=== PATIENT | female | born 1980 | race African-American/Black ===

== ENCOUNTER 2023-07-03 12:05 | Emergency (ER) | payer OTHER, SELFPAY ==
--- NOTE | ~2023-07-03 | XR_ITS ---
EXAMINATION: XR shoulder RT min 2V INDICATION: Right shoulder pain TECHNIQUE: Four views of the right shoulder are submitted. COMPARISON: None FINDINGS: Normal alignment. No fracture. Glenohumeral and acromioclavicular joint spaces are normal. Soft tissues are unremarkable. IMPRESSION: 1. No acute osseous abnormality. Reviewed, dictated and finalized at location F.
--- NOTE | ~2023-07-03 | CT_ITS ---
EXAMINATION: CT cervical spine wo con DATE: 07/03/2023 14:29 INDICATION: Right-sided neck pain radiating down the right arm TECHNIQUE: Computed tomography (CT) of the cervical spine was performed without intravenous contrast. Automated exposure control and iterative reconstruction technique were employed. The dose-length pro duct was 205.53 mGy-cm. COMPARISON: None FINDINGS: There is reversal of the normal cervical lordosis which could be positional or due to muscle spasm. N o spondylolisthesis or facet subluxation. Vertebral body heights are normal. There is developmental f usion between the C2 and C3 vertebral bodies both anteriorly and posteriorly. Mild disc height loss a t C4-C5 and C6-C7 and moderate disc height loss at C5-C6. Cervical soft tissues are unremarkable. Vis ualized apices of lungs are clear. The following disc levels are specifically discussed: C2-C3: Disc space and facet joints are likely developmentally fused. There is no neural foraminal julieta nosis. There is no central canal stenosis. C3-C4: The disc does not extend beyond the endplate margin. There is mild bilateral uncovertebral gianfranco nt osteoarthritis. There is mild bilateral facet joint osteoarthritis. There is bilateral neural fora felipe stenosis. There is no central canal stenosis. C4-C5: The disc does not extend beyond the endplate margin. There is old right and moderate to severe left uncovertebral joint osteoarthritis. There is no facet joint osteoarthritis. There is mild left and minimal right neural foraminal stenosis. There is mild left central canal stenosis. C5-C6: Mild disc bulge. There is mild left and moderate right uncovertebral joint osteoarthritis. The re is mild bilateral facet joint osteoarthritis. There is mild right neural foraminal stenosis. There is no central canal stenosis. C6-C7: The disc does not extend beyond the endplate margin. There is no uncovertebral joint osteoarth ritis. There is no facet joint osteoarthritis. There is no neural foraminal stenosis. There is no juan tral canal stenosis. C7-T1: The disc does not extend beyond the endplate margin. There is mild left uncovertebral joint os teoarthritis. There is no facet joint osteoarthritis. There is no neural foraminal stenosis. There is no central canal stenosis. IMPRESSION: 1. Mild to moderate cervical spondylosis with likely developmental C2-C3 anterior and posterior spina l fusion. Reviewed, dictated and finalized at location A. IMPRESSION: 1. Mild to moderate cervical spondylosis with likely developmental C2-C3 anteri or and posterior spinal fusion.
--- NOTE | ~2023-07-03 | CT_ITS ---
EXAMINATION: CT thoracic spine wo con DATE: 07/03/2023 14:29 INDICATION: Upper back pain TECHNIQUE: Computed tomography (CT) of the thoracic spine was performed without intravenous contrast. Automated exposure control and iterative reconstruction technique were employed. The dose-length pro duct was 477.49 mGy-cm. COMPARISON: Thoracic spine radiographs dated 06/04/2007 FINDINGS: 12 degrees thoracic levoscoliosis. Sagittal alignment is normal. Chronic appearing T7 compression fra cture with 20% anterior vertebral body height loss. Remaining vertebral body heights are normal. Ther e is multilevel mild disc height loss with mild degenerative endplate changes from T2-T3 through T9-T 10. Moderate facet osteoarthritis on the right bilaterally at T5-T6 and T6-T7 and on the right at T7- T8 and T8-T9 with mild neural foraminal stenosis on the right at T5-T6 and T6-T7. Scattered mild face t osteoarthritis throughout much of the remaining thoracic spine with minimal neural foraminal stenos is at a few additional levels on the left and right. No central canal stenosis. Nonspecific small scl erotic lesion at the T3 vertebral body. Paravertebral soft tissues and visualized portions of the juan gs are clear. IMPRESSION: 1. Chronic mild T7 compression fracture. No acute osseous abnormalities. 2. Mild thoracic levoscoliosis with mild spondylosis. 3. Nonspecific small sclerotic lesion at the T3 vertebral body and statistically most likely to repre sent a bone island. If there is history of prior malignancy would consider bone scan for further eval uation. Reviewed, dictated and finalized at location A. IMPRESSION: 1. Chronic mild T7 compression fracture. No acute osseous abnormalities. 2. Mild thoracic levoscoliosis with mild spondylosis. 3. Nonspecific small sclerotic lesion at the T3 vertebral body and statisticall y most likely to represent a bone island. If there is history of prior malignan cy would consider bone scan for further evaluation.
[2023-07-03 12:06] VITALS: BP 135/82; PULSE 80; RESP 18; TEMP 36.2; O2SAT 100
--- NOTE | 2023-07-03 13:28 | ED.GENADULT ---
HPI - General Adult General Chief complaint: Unspecified <ESTHER Hearn Last Filed: 07/03/23 13:38> Stated complaint: R shoulder/back pain <ESTHER Hearn Last Filed: 07/03/23 13:38> Time Seen by Provider: 07/03/23 13:28 <ESTHER Hearn Last Filed: 07/03/23 13:38> Focused HPI: Patient is a 43 y/o female who presents to the ED with c/o R sided shoulder/upper back pain. Patient reports the pain has been ongoing for over a month. She denies any injury. She was seen at [facility] 1 month ago for similar sx's, told she had degenerative disc disease on imaging, felt better with supportive therapy. States pain has been worsening again over last 10 days. Has been taking naproxen and konstantin back and body w/o improvement. Pain is constant with intermittent sharp shooting pains. Pain radiates across her chest, down her R arm to her elbow, right neck down into upper to mid back. Denies numbness/tingling, SOB, N/V. GENERAL: Well-appearing, well-nourished, and in no acute distress. HEAD: Normocephalic, atraumatic. CHEST: Clear to auscultation. ?No respiratory distress. HEART: Regular rate and rhythm.? NEURO: ?Alert and oriented x3. No focal deficits. Equal community placement worker strength bilaterally MSK: Significant tenderness with any light palpation throughout R anterior chest wall, R clavicular region, R shoulder joint anteriorly, and throughout R sided thoracic and cervical paraspinal musculature. No palpable spinal bony deformities. PSYCH: Anxious, tearful Patient screened in triage and initial orders placed.? ?Additional care and disposition to be based upon?diagnostic testing and treatment. <ESTHER Hearn Last Filed: 07/03/23 13:38> Source: patient <ESTHER Hearn Last Filed: 07/03/23 13:38> Mode of arrival: ambulatory <ESTHER Hearn Last Filed: 07/03/23 13:38> Limitations: no limitations <Thelma Junior PA-C - Last Filed: 07/03/23 13:38> History of Present Illness HPI narrative: 43-year-old female presenting with right-sided chest pain. States that this has been going on for the last month or so. She was seen at [facility] and prescribed naproxen and Flexeril which has been helping on a temporary basis. She is unsure about exacerbating or alleviating factors. States that she is under a tremendous amount of stress and she is a single mother. Denies any infectious symptoms. Denies leg swelling, shortness of breath, numbness or weakness. Denies any recent traumas. <Grace Drew MD - Last Filed: 07/10/23 10:32> Related Data Allergies/adverse reactions: Allergies Allergy/AdvReac Type Severity Reaction Status Date / Time No Known Allergies Allergy Unverified 03/22/18 09:21 <Thelma Junior PA-C - Last Filed: 07/03/23 13:38> Review of Systems Review of Systems: All systems reviewed & are unremarkable except as noted in HPI and below <Grace Drew MD - Last Filed: 07/10/23 10:32> [facility] Family History Family History: Family History Sibling Hypertension Patient's brother is in good health Mother Family history of malignant neoplasm of breast in first degree relative Family history of heart disease in male family member before age 55 <Thelma Junior PA-C - Last Filed: 07/03/23 13:38> Social History Social History: Social History Smoking status: Never smoker Alcohol intake: never <Thelma Junior PA-C - Last Filed: 07/03/23 13:38> Exam Narrative: GENERAL: Tearful, anxious, very pleasant and cooperative HEAD: Normocephalic, atraumatic. EYES: PERRLA and EOMI. ENT: grossly unremarkable NECK: Supple. no midline tenderness CHEST: Clear to auscultation. No respiratory distress. +tender over upper right chest wall HEART: Regular rate and rh
--- NOTE | 2023-07-03 13:34 | ECG_ITS ---
Measurements Intervals [place] Rate: 87 P: 79 AL: 132 QRS: 50 QRSD: 78 T: 52 QT: 372 QTc: 450 Interpretive Statements SINUS RHYTHM LEFT ATRIAL ENLARGEMENT BASELINE ARTIFACT- I, III, AVR, AVL, AVF, V1-V3 BORDERLINE ECG NO PREVIOUS ECG AVAILABLE FOR COMPARISON Electronically Signed On 07-03-2023 13:51:18 CDT by Jorge Lopez D.O.
[2023-07-03] MEDS: methylPREDNISolone SOD SUCC 125 MG VIAL IM (13:59)
[2023-07-03] MEDS: ACETAMINOPHEN 500 MG TABLET 1000 MG PO (14:00)
[2023-07-03 15:15] VITALS: BP 121/83; PULSE 68; RESP 18; O2SAT 100
== END 2023-07-03 17:58 | disposition home or self-care (01) ==
PROVIDERS: Emergency Provider Emergency Medicine; PCP Family Medicine
DX: R07.89 Other chest pain (principal); F41.9 Anxiety disorder, unspecified; M47.812 Spondylosis without myelopathy or radiculopathy, cervical region; M48.54XA Collapsed vertebra, not elsewhere classified, thoracic region, initial encounter for fracture; M89.9 Disorder of bone, unspecified; R94.31 Abnormal electrocardiogram [ECG] [EKG]
CPT/HCPCS: 72125; 72128; 73030; 81025; 93005; 96372; 99284; A9270; J2930

== ENCOUNTER 2025-01-21 20:08 | Emergency (ER) | payer OTHER, SELFPAY ==
--- NOTE | ~2025-01-21 | XR_ITS ---
Examination: XR chest 2V Clinical History: cough Comparison: None Technique: PA and Lateral Findings: Cardiomediastinal silhouette normal size and configuration. Lungs clear. No acute bony abnormality. IMPRESSION: 1. No acute cardiopulmonary findings. Reviewed, dictated and finalized at location R.
[2025-01-21 20:11] VITALS: BP 111/76; PULSE 84; RESP 16; TEMP 36.4; O2SAT 100
[2025-01-21 20:20] VITALS: O2SAT 100
--- NOTE | 2025-01-21 20:39 | ED.URI ---
HPI - URI/Sore Throat General Chief Complaint: Upper Respiratory Infection Stated Complaint: COUGH Time Seen by Provider: 01/21/25 20:24 Source: patient Mode of arrival: ambulatory Limitations: no limitations History of Present Illness HPI Narrative: Patient is a 44-year-old female presents to the emergency department complaining of nose bleeds, as a congestion, cough, difficulty sleeping. Patient notes that she took NyQuil for symptoms still isn't getting much relief. Patient she had to nasal bleeds over the past couple days and she was able to get stopped. Last menstrual period was about 2 weeks ago. Patient denies any known fevers. Patient is to history of allergies. Patient has a cough is productive of yellow sputum. Patient admits to smoking marijuana, denies cigarette smoking. Related Data Allergies Allergy/AdvReac Type Severity Reaction Status Date / Time No Known Allergies Allergy Verified 01/21/25 20:15 Review of Systems Review of Systems: A 10 system review of systems was completed on the patient and is negative except for what is stated in the HPI. Nursing and ancillary documentation was reviewed. [facility] Family History Family History Sibling Hypertension Patient's brother is in good health Mother Family history of malignant neoplasm of breast in first degree relative Family history of heart disease in male family member before age 55 Social History Social History Smoking status: Never smoker Alcohol intake: never Exam Narrative: CONST: No acute distress. Well nourished. HENMT: Head is normocephalic and atraumatic. Moist mucous membranes. No posterior oropharynx erythema. Bilateral nasal turbinate edema. No epistaxis. EYES: No scleral icterus. No conjunctival injection or pallor. PERRL. NECK: No meningeal signs. RESP: Able to speak in full sentences. Normal respiratory effort. Rhonchorous breath sounds diffusely that clear with cough. CARDIO: Regular rate. Regular rhythm. 2+ DP and radial pulses bilaterally. GI: Nondistended. No tenderness to palpation. Soft. : No CVA tenderness to palpation. SKIN: No rashes or lesions noted on exposed skin. NEURO: Oriented x3. Moves all extremities. EXTREM/MSK/BACK: No pedal edema. PSYCH: Normal affect. Course Vital Signs Vital signs: Vital Signs Temperature 97.6 F 01/21/25 20:11 Pulse Rate 84 01/21/25 20:11 Respiratory Rate 16 01/21/25 20:11 Blood Pressure 111/76 01/21/25 20:11 Pulse Oximetry 100 01/21/25 20:11 Oxygen Delivery Room Air 01/21/25 20:11 Temperature 97.6 F 01/21/25 20:11 Pulse Rate 84 01/21/25 20:11 Respiratory Rate 16 01/21/25 20:11 Blood Pressure 111/76 01/21/25 20:11 Pulse Oximetry 100 01/21/25 20:20 Oxygen Delivery Room Air 01/21/25 20:20 MDM - URI/Sore Throat MDM Narrative Medical decision making narrative: Patient presents with the above complaint. Initial vitals are remarkable for no significant abnormalities. Physical examination as noted above. Differential diagnosis includes was not limited to: Rhinosinusitis, viral URI, pneumonia, bronchitis. Patient counseled on epistaxis management through were to arise again. Discussed plan to obtain a chest x-ray, test, viral swab. Colored fluid RSV testing negative. Urine HCG testing negative. Patient discharged however did not stay for her discharge paperwork. Lab Data Attestation: I reviewed the patient's lab results. Labs: Lab Results 01/21/25 01/21/25 01/21/25 Range/Units 20:46 22:06 22:08 POC Urine HCG, Qual Negative (Negative) Urine Test Pending Influenza A (RT-PCR) Negative (Negative) Influenza B (RT-PCR) Negative (Negative) RSV (RT-PCR) Negative (Negative) SARS-CoV-2 RNA (RT-PCR) Negative (Negative) Imaging Data Attestation: I personally reviewed and interpreted this imaging study as follows: My impression: I personally reviewed interpreted the chest x-ray as no acute cardiopulmonary process. Discharge Plan Discharge Clinical Impression: Bronchitis Upper respiratory infection Qualifiers: URI type: unspecified URI Qualified Code(s): J06.9 - Acute upper respiratory infection, unspecified Patient Disposition: Home Condition: Stable Instructions: Antibiotic Form, Upper Respiratory Infection (ED), Acute Bronchitis (ED) Additional Instructions: Follow-up with your primary care physician the next few days for reassessment, rest and stay well hydrated, take [id number]-zoa-[id number] cough and cold medications as needed for symptoms, return immediately to the emergency department for any new or concerning symptoms especially any emergent concerns for life, limb eyesight. Patient Language: Slovenian Prescriptions: No Action naproxen 500 mg tablet 500 mg PO BID Qty: 60 0RF cyclobenzaprine 10 mg tablet 10 mg PO TID PRN (Reason: muscle spasm) Qty: 30 0RF Follow-up/Referrals: Robinson Swanson MD [Primary Care Provider, [facility]] - 2 Days Time of Disposition: 22:23
--- OUTSIDE RECORDS SUMMARY | 2025-01-21 20:41 | XMS_ITS | Data Portability ---
Author Organization [place] [facility], Main Office Address [address] [place] [address] Assessment No assessment recorded. Plan of Treatment Reminders Order Date Submit Date Provider Last Modified By Organization Details Last Modified Time Details Appointments None record ed. Lab None record ed. Referral None record ed. Procedures None record ed. Surgeries None record ed. Imaging None record ed. Medication Orders None record ed. Patient TargetsNo targets recorded. Patient InstructionsNo instructions recorded. Reason for Referral None Reported. Results Created Date Observation Date Name Description Value Unit Range Abnormal Flag Note LastModifiedBy Organization Detail LastModifiedTime 04/11/2004/10/2023 CT, maxil lofac ial, w/o contr ast [facility] [address] [place] [address] Patien t Name: SELENA BAKER Access ion #: [id number] Sex: F : 1979 6 Dictat ed By: Bakari Buchanan Attend ing Physic jeffery: ÁNGEL YUEN Orderi Physic jeffery: ÁNGEL YUEN Exam Date: 2022 10:46 AM Exam Name: CT MAXILL OFACIA L WO Admitt ing Diagno sis(es ): MAXILL OFACIA L CT HISTOR Y: Sinusi tis TECHNI QUE: Nonenh anced axial images throug h the facial bones with gracia l and sagitt al MPR. CTDI volume is 25 mGy. Dose-l ength produc t is 250 mGy*cm FINDIN GS: Mandib le: Normal Maxill a: Normal Pteryg oid plates : Normal Zygoma tic proces ses: Normal . Zygoma tic arches : Normal Orbits : Normal Sinuse s: Clear. Mastoi d air cells are well-a erated . Nonspe cific 2 cm hyperd ense focus at the base of the left common , hemorr jg not exclud ed. Please correl ate with physic al examin ation. Consid er dental consul tation . IMPRES SALEEM: Nonspe cific 2 cm hyperd ense focus at the base of the left common , hemorr jg not exclud ed. Please correl ate with physic al examin ation. Consid er dental consul tation . Electr onical ly Signed by: Bakari Buchanan at 2022 12:17: 50 PM Page [address] (Imaging) [address] [place], [address], 04/15/2023 14:41:40 04/15/19 24 04/10/2023 CT, sinus es, w/o contr ast No observ ation record ed. [address] [place], [address], 04/15/2023 14:41:41 04/16/19 24 04/10/2023 CT, sinus es, w/o contr ast No observ ation record ed. [address] [place], [address], 04/20/2023 15:44:01 11/11/19 25 11/09/2024 XR, knee, 4 or more view No observ ation record ed. [email or web address] Not Available 2024 17:21:08 Result Notes Documentation Provider Name and Address Organization Details Recorded Time Ct, Maxillofacial, W/o Contrast : [facility] [address] [place] [address] Patient Name: KERMIT BAKER Sex: F : 1980 Dictated By: Bakari Buchanan Attending Physician: ÁNGEL HERRERA Ordering Physician: ÁNGEL HERRERA Exam Date: 04/10/2023 10:46 AM Exam Name: CT MAXILLOFACIAL WO Admitting Diagnosis(es): MAXILLOFACIAL CT HISTORY: Sinusitis TECHNIQUE: Nonenhanced axial images through the facial bones with coronal and sagittal MPR. CTDI volume is 25 mGy. Dose-length product is 250 mGy*cm FINDINGS: Mandible: Normal Maxilla: Normal Pterygoid plates: Normal Zygomatic processes: Normal. Zygomatic arches: Normal Orbits: Normal Sinuses: Clear. Mastoid air cells are well-aerated. Nonspecific 2 cm hyperdense focus at the base of the left common, hemorrhage not excluded. Please correlate with physical examination. Consider dental consultation. IMPRESSION: Nonspecific 2 cm hyperdense focus at the base of the left common, hemorrhage not excluded. Please correlate with physical examination. Consider dental consultation. 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 Procedures Surgical History Date Name Laterality Status Provider Name and Address Organization Details Recorded Time repair of right middle ear completed IRAIDA Haley [facility] 03/09/2023 17:16:46 Imaging Results None recorded. Procedure Notes None recorded. Medical Equipment None Reported. Allergies No known drug allergies Medications Name Sig Start Date Stop Date Status Note LastModified by Organization Details LastModified Time Medrol 4 mg tablet Take 1 tablet 4 times a day by oral route. 03/25 completed 1 pack Not Available Not Available Not Available ketorolac 10 mg tablet Take 1 tablet every 6 hours by oral route. active 1 tab QID prn for pain Not Available Not Available Not Available lidocaine 5 % topical patch APPLY 1 PATCH TRANSDERM AL ROUTE ONCE DAILY active Not Available Not Available No t Available naproxen 500 mg tablet TAKE 1 TABLET BY MOUTH TWICE A DAY WITH FOOD active Not Available Not Available No t Available amoxicillin 03/25 completed 1 tab q 12 hrs for 10 days Not Available Not Available Not Available Claritin active q day Not Available Not Avai lable Not Available Benadryl active q day Not Available Not Avai lable Not Available Sudafed active Not Available Not Avail able Not Available Vitals Date Recorded Body weight Body mass index (BMI) Body height Body temperature Provider Name and Address Organization Details Last Updated DateTime 03/25/2023 50613.44 g 25 kg/m2 157.48 cm 97.7 [degF] Thelma Pate RN [place] [facility] 03/25/2023 15:11:10 Social History None recorded. Functional Status Question Answer Note LastModified by Organization D etails LastModified Time What is your level of alcohol consumption? None [email or web address] Information not available 03/09/2023 Mental Status None recorded. Family History Relationship Description Onset Age of this Age Resolved Age Notes LastModified by Organization Details LastModified Time Mother Seasonal allergy [email or web address] Not available 2022 17:02:27 Medical History Condition Response ENT Y Gynecological HistoryNo gynecological history recorded. Obstetrics History GPAL:G 0 P 0 0 0 0 Past Encounters Encounter ID Performer Location Encounter Start Date Encounter Closed Date Diagnosis/Indication Diagnosis SNOMED-CT Code Diagnosis ICD10 Code Diagnosis IMO Codes Diagnosis Note [id number] Ángel Herrera MD [facility] [place] [address] [place] [address] 03/25/2023 15:05:43 03/25/2023 16:11:43 Chronic sinusitis 74111514 J32.9 Health Concerns Section Related Observation LastModified by Organization Detai ls LastModified Time None Recorded Concern Status LastModified by Organization Details LastModified Time None Recorded Advance Directives Directive None Recorded Payers Insurance Date Sequence Insurance Name Policy Number Policy Reese Covered Member ID Reese Member ID Guarantor Name 11/16/2024 1 [employer] [facility] ON OR AFTER 03/13/2020 (MEDICAID REPLACEMENT - HMO) Kermit Baker [id number] Kermit Baker 11/16/2024 1 [facility] [place] ([place]ICA[place] HMO) [id number] Kermit Baker [id number] Kermit Baker 12/06/2024 1 [place] Kermit Sanchez Olivia [id number] Jarrodstanley Baker 11/16/2024 1 [employer] [facility] ON OR AFTER 03/13/2020 (MEDICAID REPLACEMENT - HMO) Kermit Laura Baker [id number] Kermit Laura Baker 12/06/2024 1 [facility] (MEDICAID HMO) Jarrodstanley Baker [id number] Kermit Baker Notes Date Note Type Note Provider Name and Address Organization Details Recorded Time 03/25/2023 text/html this patient reports she has had right ear pain for a month. She was seen in the emergency room were amoxicillin and Z-Sterling was given addition to steroids. This help she continues to have facial pain and pressure. There has also been nasal and pharyngeal drainage. There has been no imaging. Ángel Herrera MD [address] [place] [address], [place] [address], [place], [address], [place] [facility] 03/25/2023 15:28:38 OBGyn Episode No OBEpisode recorded.
[2025-01-21 21:28] LABS: Influenza A QL RT-PCR Negative (Negative); Influenza B QL RT-PCR Negative (Negative); RSV RNA, RT-PCR Negative (Negative); SARS-CoV-2 RNA PCR Negative (Negative)
[2025-01-21] MEDS: PSEUDOEPHEDRINE HCL 30 MG TABLET PO (22:09)
[2025-01-21] MEDS: dexAMETHasone SOD PHOS INJ 10 MG/ML 1 ML VIAL BY MOUTH (22:09)
[2025-01-21] MEDS: KETOROLAC 30 MG/ML VIAL (*BKC) 15 MG IM (22:09)
[2025-01-21 22:10] LABS: BEDSIDEPREGUCG Negative (Negative)
[2025-01-21 22:31] LABS: Pregnancy On Board Control Positive
== END 2025-01-21 22:31 | disposition home or self-care (01) ==
PROVIDERS: Emergency Provider Student in an Organized Health Care Education/Training Program; PCP Family Medicine
DX: J40 Bronchitis, not specified as acute or chronic (principal); J06.9 Acute upper respiratory infection, unspecified; Z20.822 Contact with and (suspected) exposure to COVID-19
CPT/HCPCS: 71046; 81025; 87637; 96372; 99283; A9270; J1100; J1885